=== PATIENT | female | born 1990 | race American Indian/Alaskan Native ===

== ENCOUNTER 2017-09-08 13:28 | Emergency (ER) | payer SELFPAY ==
[2017-09-08 15:18] VITALS: BP 128/81
--- NOTE | 2017-09-08 17:27 | Emergency Department Report ---
ED ENT HPI - General Chief complaint: Earache Stated complaint: BILATERAL EAR PAIN Time Seen by Provider: 09/08/17 16:56 Source: patient Mode of arrival: Ambulatory Limitations: No Limitations - History of Present Illness Initial comments: PT states her ears always drain wet ear wax. PT states her ears started to hurt on Wednesday. PT states the pain was so bad, she was crying. PT states she has been taking Aleve for the pain. PT denies hx of frequent ear infections. PT denies recent URI or ear trauma MD complaint: ear pain -: Gradual Location: R ear, L ear (hurts worse than right ) Severity scale (0 -10): 7 Quality: aching, constant Consistency: constant Improves with: none Worsens with: swallowing Associated Symptoms: pain with swallowing (ear pain with swallowing ), discharge from ear. denies: fever, cough, toothache, sore throat - Related Data Previous Rx's Medication Instructions Recorded Last Taken Type Amoxicillin 500 mg PO BID #20 capsule 09/08/17 Unknown Rx traMADol [Ultram] 50 mg PO Q6HR PRN #8 tablet 09/08/17 Unknown Rx Allergies Allergy/AdvReac Type Severity Reaction Status Date / Time No Known Allergies Allergy Unverified 09/08/17 15:15 ED Dental HPI - General Chief complaint: Earache Stated complaint: BILATERAL EAR PAIN Time Seen by Provider: 09/08/17 16:56 Source: patient Mode of arrival: Ambulatory Limitations: No Limitations - Related Data Previous Rx's Medication Instructions Recorded Last Taken Type Amoxicillin 500 mg PO BID #20 capsule 09/08/17 Unknown Rx traMADol [Ultram] 50 mg PO Q6HR PRN #8 tablet 09/08/17 Unknown Rx Allergies Allergy/AdvReac Type Severity Reaction Status Date / Time No Known Allergies Allergy Unverified 09/08/17 15:15 ED Review of Systems ROS: Stated complaint: BILATERAL EAR PAIN Other details as noted in HPI Comment: All other systems reviewed and negative Constitutional: denies: chills, fever ENT: as per HPI, ear pain Respiratory: denies: cough Gastrointestinal: denies: abdominal pain, nausea, vomiting Genitourinary: denies: abnormal menses (lmp ended on 08-31-17 ) Neurological: denies: headache ED Past Medical Hx - Past Medical History Previous Medical History?: Yes Additional medical history: URI - Surgical History Past Surgical History?: No - Social History Smoking Status: Current Every Day Smoker Substance Use Type: Alcohol - Medications Home Medications: Home Medications Medication Instructions Recorded Confirmed Last Taken Type Amoxicillin 500 mg PO BID #20 capsule 09/08/17 Unknown Rx traMADol [Ultram] 50 mg PO Q6HR PRN #8 tablet 09/08/17 Unknown Rx ED Physical Exam - General Limitations: No Limitations General appearance: alert, in no apparent distress, obese - Head Head exam: Present: atraumatic, normocephalic, normal inspection, other ( frontal sinuses and maxillary sinuses not ttp ) - Eye Eye exam: Present: normal appearance. Absent: PERRL, conjunctival injection - ENT ENT exam: Present: normal exam, normal orophraynx, mucous membranes moist, normal external ear exam - Expanded ENT Exam Expanded Ear exam: Present: normal external inspection, other (no tragus tenderness sarah, no canal discharge, sarah cone of light distorted ). Absent: auricular hematoma, auricular trauma TM/Canal exam: Effusion: Right TM, Left TM Mouth exam: Present: normal external inspection. Absent: drooling, trismus Teeth exam: Present: dental caries. Absent: dental tenderness # Throat exam: Positive: normal inspection. Negative: tonsillar erythema, tonsillomegaly, tonsillar exudate - Neck Neck exam: Present: normal inspection, full ROM. Absent: tenderness, lymphadenopathy - Respiratory Respiratory exam: Present: normal lung sounds bilaterally. Absent: respiratory distress, wheezes, rales, rhonchi - Cardiovascular Cardiovascular Exam: Present: regular rate, normal rhythm, normal heart sounds - GI/Abdominal GI/Abdominal exam: Present: soft, distended - Extremities Exam Extremities exam: Present: normal inspection, full ROM - Back Exam Back exam: Present: normal inspection, full ROM - Neurological Exam Neurological exam: Present: alert, oriented X3, normal gait - Expanded Neurological Exam Expanded Patient oriented to: Present: person, place, time Speech: Present: fluid speech Best Eye Response (Angie): (4) open spontaneously Best Motor Response (Angie): (6) obeys commands Best Verbal Response ([place]): (5) oriented Angie Total: 15 - Psychiatric Psychiatric exam: Present: normal affect, normal mood - Skin Skin exam: Present: warm, dry, intact ED Course Vital Signs 09/08/17 15:15 Temperature 98.5 F Pulse Rate 74 Respiratory 20 Rate Blood Pressure 128/81 O2 Sat by Pulse 100 Oximetry - Reevaluation(s) Reevaluation #1: 09/08/17 17:23 After I left pt's room, she called out and asked for a test. Reevaluation #2: 09/08/17 19:22 PT aware of test results. PT has no questions at this time. - Pulse Oximetry Interpretation Digit-Finger Initial Pulse Oximetry Readin ED Medical Decision Making - Lab Data Labs 09/08/17 17:05 Urine HCG, Qual Negative - Differential Diagnosis om, oe, referred pain Critical Care Time: No Critical care attestation.: If time is entered above; I have spent that time in minutes in the direct care of this critically ill patient, excluding procedure time. ED Disposition Clinical Impression: Otalgia of both ears, Dental decay Disposition: TO HOME OR SELFCARE Is pt being admited?: No Does the pt Need Aspirin: No Condition: Stable Instructions: Dental Caries (ED), Earache (ED) Additional Instructions: No driving or alcohol after Ultram Follow up with PCP in 3-5 days Follow up with Dentist is 3-5 days Continue Aleve Prescriptions: Amoxicillin 500 mg PO BID #20 capsule traMADol [Ultram] 50 mg PO Q6HR PRN #8 tablet PRN Reason: Pain Referrals: PRIMARY MD DALY [Primary Care Provider] - 3-5 Days VERO LIVE MD [Staff Physician] - 3-5 Days Forms: Work/School Release Form(ED) Time of Disposition: 19:25
== END 2017-09-08 20:06 | disposition home or self-care (01) ==
LOC: EDBD → ED 13:28
DX: H92.03 Otalgia, bilateral (principal)
CPT/HCPCS: 81025; 99282